=== PATIENT | male | born 1995 | race Caucasian/White ===

== ENCOUNTER 2020-12-04 14:10 | Inpatient (IN) | payer OTHER ==
[2020-12-04 17:22] VITALS: BMI 24.3
[2020-12-04] MEDS ORDERED: ACETAMINOPHEN 325 MG TABLET (FP) PO PRN ×2 (22:11)
[2020-12-04] MEDS ORDERED: hydrOXYzine PAMOATE 25 MG CAPSULE (FP) PO PRN (22:11)
[2020-12-04] MEDS ORDERED: cloNIDine HCL 0.1 MG TABLET PO PRN (22:11)
[2020-12-04] MEDS ORDERED: ONDANSETRON *ODT* 4 MG TABLET SL PRN (22:11)
[2020-12-04] MEDS ORDERED: MAGNESIUM HYDROX 2400MG/30ML ORAL SUSPENSION 30 ML CUP PO PRN (22:11)
[2020-12-04] MEDS ORDERED: BISMUTH SUBSALICYLATE 524 MG/30 ML UD PO PRN (22:11)
[2020-12-04] MEDS ORDERED: MAGNESIUM CITRATE 300 ML BOTTLE PO PRN (22:11)
[2020-12-04] MEDS ORDERED: METHADONE HCL 10 MG TABLET (FOR DETOX USE ONLY) PO ONE (23:00)
[2020-12-05] MEDS ORDERED: METHADONE HCL 10 MG TABLET (FOR DETOX USE ONLY) ONE (09:38)
[2020-12-05] MEDS ORDERED: METHADONE HCL 5 MG TABLET (FOR DETOX USE ONLY) ONE (09:38)
[2020-12-05] MEDS ORDERED: METHADONE (DETOX) 20 MG, METHADONE (DETOX) 5 MG PO ONE (10:00)
[2020-12-05] MEDS: PRENATAL VITAMINS W/ FOLIC ACID TABLET (FP) PO SCH (10:34)
[2020-12-05] MEDS: NICOTINE 21 MG/24 HOURS TOPICAL PATCH TD SCH (10:34)
[2020-12-05 12:08] LABS: ALBUMIN 3.7 g/dl (3.4-5.0); CALCIUM 9.2 mg/dL (8.5-10.1)
[2020-12-05 12:09] LABS: BLOOD UREA NITROGEN 15.4 mg/dL (7-18); CREATININE 1.1 mg/dL (0.55-1.3)
[2020-12-05 12:12] LABS: TOT PROT 6.6 g/dl (6.4-8.2)
[2020-12-05 12:24] LABS: HEMATOCRIT 41.7 % (35.4-49); HEMOGLOBIN 14.1 GM/dL (11.7-16.9); MCH 28.4 pg (25.7-33.7); MCHC 33.7 g/dl (32.0-35.9); MEAN CELL VOLUME 84.4 fl (80-96); MEAN PLT VOLUME 7.2 fl (7.5-11.1); PLATELET COUNT 267 K/MM3 (134-434); RBC 4.94 M/mm3 (4.00-5.60); RDW 13.1 % (11.9-15.9); WHITE BLOOD COUNT 6.4 K/mm3 (4.0-10.0)
[2020-12-05] MEDS: IBUPROFEN 400 MG TABLET (FP) PO PRN ×2 (12:33→22:38)
[2020-12-05] MEDS: MAG HYDROX/AL HYDROX/SIMETH 30 ML UNIT-DOSE CUP PO PRN (12:33)
[2020-12-05 13:04] LABS: HIV INTERPRETATION NEGATIVE (NEGATIVE)
[2020-12-05] MEDS: METHOCARBAMOL 500 MG TABLET PO PRN (13:40)
[2020-12-05] MEDS: NICOTINE POLACRILEX 2 MG GUM BUC PRN (17:58)
[2020-12-05] MEDS ORDERED: MELATONIN 5 MG TABLETS PO SCH (22:00)
[2020-12-05] MEDS: THIAMINE HCL 100 MG TABLET (FP) PO SCH (22:35)
[2020-12-05] MEDS: SUVOREXANT 15 MG TABLET PO PRN (22:36)
[2020-12-05] MEDS: GABAPENTIN 400 MG CAPSULE PO SCH (22:36)
[2020-12-05] MEDS: hydrOXYzine PAMOATE 50 MG CAPSULE (FP) PO PRN (22:37)
[2020-12-06] MEDS: GABAPENTIN 400 MG CAPSULE PO SCH ×3 (06:40→22:21)
[2020-12-06] MEDS ORDERED: METHADONE HCL 10 MG TABLET (FOR DETOX USE ONLY) PO ONE (10:00)
[2020-12-06] MEDS: PRENATAL VITAMINS W/ FOLIC ACID TABLET (FP) PO SCH (11:07)
[2020-12-06] MEDS: METHOCARBAMOL 500 MG TABLET PO PRN (11:07)
[2020-12-06] MEDS: NICOTINE 21 MG/24 HOURS TOPICAL PATCH TD SCH (11:07)
[2020-12-06] MEDS: MAG HYDROX/AL HYDROX/SIMETH 30 ML UNIT-DOSE CUP PO PRN (12:57)
[2020-12-06 16:39] LABS: BILIRUBIN,DIRECT 0.2 mg/dL (0.0-0.2)
[2020-12-06 16:41] LABS: BILIRUBIN,TOTAL 1.5 mg/dL (0.2-1)
[2020-12-06] MEDS: NICOTINE POLACRILEX 2 MG GUM BUC PRN (20:45)
[2020-12-06] MEDS: THIAMINE HCL 100 MG TABLET (FP) PO SCH (22:21)
[2020-12-06] MEDS: SUVOREXANT 15 MG TABLET PO PRN (22:21)
[2020-12-06] MEDS: hydrOXYzine PAMOATE 50 MG CAPSULE (FP) PO PRN (22:23)
[2020-12-07] MEDS: GABAPENTIN 400 MG CAPSULE PO SCH ×3 (07:42→22:41)
[2020-12-07] MEDS ORDERED: METHADONE HCL 5 MG TABLET (FOR DETOX USE ONLY) ONE (09:37)
[2020-12-07] MEDS ORDERED: METHADONE HCL 10 MG TABLET (FOR DETOX USE ONLY) ONE (09:37)
[2020-12-07] MEDS ORDERED: METHADONE (DETOX) 10 MG, METHADONE (DETOX) 5 MG PO ONE (10:00)
[2020-12-07] MEDS: PRENATAL VITAMINS W/ FOLIC ACID TABLET (FP) PO SCH (10:14)
[2020-12-07] MEDS: NICOTINE 21 MG/24 HOURS TOPICAL PATCH TD SCH (10:14)
[2020-12-07] MEDS: MAG HYDROX/AL HYDROX/SIMETH 30 ML UNIT-DOSE CUP PO PRN (10:16)
[2020-12-07] MEDS: hydrOXYzine PAMOATE 50 MG CAPSULE (FP) PO PRN ×2 (10:17→22:43)
[2020-12-07] MEDS: MENTHOL/PHENOL 1 EACH UD MM PRN (20:23)
[2020-12-07] MEDS: THIAMINE HCL 100 MG TABLET (FP) PO SCH (22:41)
[2020-12-07] MEDS: SUVOREXANT 15 MG TABLET PO PRN (22:42)
[2020-12-07] MEDS: METHOCARBAMOL 500 MG TABLET PO PRN (22:45)
[2020-12-08] MEDS: GABAPENTIN 400 MG CAPSULE PO SCH ×3 (06:21→22:28)
[2020-12-08] MEDS ORDERED: METHADONE HCL 10 MG TABLET (FOR DETOX USE ONLY) PO ONE (10:00)
[2020-12-08] MEDS: MENTHOL/PHENOL 1 EACH UD MM PRN ×2 (10:39→19:27)
[2020-12-08] MEDS: PRENATAL VITAMINS W/ FOLIC ACID TABLET (FP) PO SCH (10:39)
[2020-12-08] MEDS: NICOTINE 21 MG/24 HOURS TOPICAL PATCH TD SCH (10:39)
[2020-12-08] MEDS: METHOCARBAMOL 500 MG TABLET PO PRN (11:41)
[2020-12-08] MEDS: LIDOCAINE 5% TOPICAL PATCH TP SCH (12:39)
[2020-12-08] MEDS ORDERED: LIDOCAINE PATCH REMOVAL MC SCH ×2 (22:00)
[2020-12-08] MEDS ORDERED: MIRTAZAPINE 15 MG TABLET (FP) PO SCH (22:00)
[2020-12-08] MEDS ORDERED: SUVOREXANT 20 MG TABLET PO PRN (22:00)
[2020-12-08] MEDS: THIAMINE HCL 100 MG TABLET (FP) PO SCH (22:28)
[2020-12-09] MEDS ORDERED: METHADONE HCL 5 MG TABLET (FOR DETOX USE ONLY) PO ONE (06:00)
[2020-12-09 06:42] VITALS: PULSE 57
[2020-12-09] MEDS: GABAPENTIN 400 MG CAPSULE PO SCH (07:37)
[2020-12-09 09:05] VITALS: BP 121/81; TEMP 98.2
[2020-12-09] MEDS: NICOTINE 21 MG/24 HOURS TOPICAL PATCH TD SCH (10:59)
[2020-12-09] MEDS: LIDOCAINE 5% TOPICAL PATCH TP SCH (10:59)
[2020-12-09] MEDS: PRENATAL VITAMINS W/ FOLIC ACID TABLET (FP) PO SCH (11:00)
[2020-12-09] MEDS: MENTHOL/PHENOL 1 EACH UD MM PRN (11:36)
== END 2020-12-09 12:27 | disposition other institution (70) | DRG 773 ==
LOC: YASAS 14:10 → Y6N 21:54
PROVIDERS: ADMIT Allergy & Immunology; ATTEND Allergy & Immunology
PROC: HZ2ZZZZ Detoxification Services for Substance Abuse Treatment (ICD-10-PCS; principal; 2020-12-04)
DX: F11.23 Opioid dependence with withdrawal (principal); F19.280 Other psychoactive substance dependence with psychoactive substance-induced anxiety disorder; F19.282 Other psychoactive substance dependence with psychoactive substance-induced sleep disorder; F17.210 Nicotine dependence, cigarettes, uncomplicated; F41.9 Anxiety disorder, unspecified; E80.6 Other disorders of bilirubin metabolism; G47.00 Insomnia, unspecified; M54.89 Other dorsalgia; Z86.69 Personal history of other diseases of the nervous system and sense organs; Z87.81 Personal history of (healed) traumatic fracture
CPT/HCPCS: 36415; 80053; 82247; 82248; 85027; 86780; 87389; 93005; 93010; C9803; U0003

== ENCOUNTER 2020-12-09 12:34 | Inpatient (IN) | payer OTHER ==
[2020-12-09] MEDS ORDERED: guaiFENesin 200 MG/10 ML 10 ML UNIT-DOSE CUPS PO PRN (14:04)
[2020-12-09] MEDS ORDERED: LOPERAMIDE HCL 2 MG CAPSULE PO PRN (14:04)
[2020-12-09] MEDS ORDERED: MAGNESIUM HYDROX 2400MG/30ML ORAL SUSPENSION 30 ML CUP PO PRN (14:04)
[2020-12-09] MEDS ORDERED: MAGNESIUM CITRATE 300 ML BOTTLE PO PRN (14:04)
[2020-12-09] MEDS ORDERED: NICOTINE POLACRILEX 4 MG GUM BUC PRN (14:04)
[2020-12-09] MEDS ORDERED: IBUPROFEN 400 MG TABLET (FP) PO PRN (14:04)
[2020-12-09] MEDS ORDERED: ACETAMINOPHEN 325 MG TABLET (FP) PO PRN (14:04)
[2020-12-09] MEDS ORDERED: MAG HYDROX/AL HYDROX/SIMETH 30 ML UNIT-DOSE CUP PO PRN (14:04)
[2020-12-09] MEDS ORDERED: P-EPHED 60MG/TRIPROLIDI 2.5MG TABLET PO PRN (14:04)
[2020-12-09] MEDS: MELATONIN 5 MG TABLETS PO SCH (21:28)
[2020-12-09] MEDS: LIDOCAINE PATCH REMOVAL MC SCH (21:28)
[2020-12-09] MEDS: THIAMINE HCL 100 MG TABLET (FP) PO SCH (21:28)
[2020-12-09] MEDS: GABAPENTIN 400 MG CAPSULE PO SCH (21:29)
[2020-12-09] MEDS: hydrOXYzine PAMOATE 25 MG CAPSULE (FP) PO PRN (21:30)
[2020-12-10] MEDS: GABAPENTIN 400 MG CAPSULE PO SCH ×3 (06:48→21:27)
[2020-12-10] MEDS: hydrOXYzine PAMOATE 25 MG CAPSULE (FP) PO PRN ×2 (10:07→21:29)
[2020-12-10] MEDS: PRENATAL VITAMINS W/ FOLIC ACID TABLET (FP) PO SCH (10:07)
[2020-12-10] MEDS: NICOTINE 21 MG/24 HOURS TOPICAL PATCH TD SCH (10:07)
[2020-12-10] MEDS: LIDOCAINE 5% TOPICAL PATCH TP SCH (10:07)
[2020-12-10] MEDS ORDERED: MASKS NR ONE (16:00)
[2020-12-10] MEDS: MELATONIN 5 MG TABLETS PO SCH (21:26)
[2020-12-10] MEDS: MIRTAZAPINE 15 MG TABLET (FP) PO PRN (21:27)
[2020-12-10] MEDS: THIAMINE HCL 100 MG TABLET (FP) PO SCH (21:27)
[2020-12-10] MEDS: LIDOCAINE PATCH REMOVAL MC SCH (21:27)
[2020-12-10] MEDS: SUVOREXANT 10 MG TABLET PO PRN (21:29)
[2020-12-10] MEDS: MENTHOL/PHENOL 1 EACH UD MM PRN (21:37)
[2020-12-11] MEDS: GABAPENTIN 400 MG CAPSULE PO SCH ×3 (06:56→21:22)
[2020-12-11] MEDS: PRENATAL VITAMINS W/ FOLIC ACID TABLET (FP) PO SCH (10:10)
[2020-12-11] MEDS: LIDOCAINE 5% TOPICAL PATCH TP SCH (10:10)
[2020-12-11] MEDS: NICOTINE 21 MG/24 HOURS TOPICAL PATCH TD SCH (10:10)
[2020-12-11] MEDS ORDERED: MASKS NR ONE (13:43)
[2020-12-11] MEDS: LIDOCAINE PATCH REMOVAL MC SCH (21:22)
[2020-12-11] MEDS: THIAMINE HCL 100 MG TABLET (FP) PO SCH (21:22)
[2020-12-11] MEDS: hydrOXYzine PAMOATE 25 MG CAPSULE (FP) PO PRN (21:22)
[2020-12-11] MEDS: MELATONIN 5 MG TABLETS PO SCH (21:23)
[2020-12-11] MEDS: QUEtiapine FUMARATE 100 MG TABLET (FP) PO SCH (21:23)
[2020-12-11] MEDS: MENTHOL/PHENOL 1 EACH UD MM PRN (21:24)
[2020-12-11] MEDS: MIRTAZAPINE 15 MG TABLET (FP) PO PRN (21:24)
[2020-12-11] MEDS: SUVOREXANT 10 MG TABLET PO PRN (21:24)
[2020-12-12] MEDS: GABAPENTIN 400 MG CAPSULE PO SCH ×3 (06:43→21:31)
[2020-12-12] MEDS: LIDOCAINE 5% TOPICAL PATCH TP SCH ×2 (10:19→10:21)
[2020-12-12] MEDS: NICOTINE 21 MG/24 HOURS TOPICAL PATCH TD SCH (10:19)
[2020-12-12] MEDS: PRENATAL VITAMINS W/ FOLIC ACID TABLET (FP) PO SCH (10:20)
[2020-12-12] MEDS: MENTHOL/PHENOL 1 EACH UD MM PRN (19:11)
[2020-12-12] MEDS: MELATONIN 5 MG TABLETS PO SCH (21:31)
[2020-12-12] MEDS: MIRTAZAPINE 15 MG TABLET (FP) PO PRN (21:31)
[2020-12-12] MEDS: SUVOREXANT 10 MG TABLET PO PRN (21:31)
[2020-12-12] MEDS: THIAMINE HCL 100 MG TABLET (FP) PO SCH (21:31)
[2020-12-12] MEDS: QUEtiapine FUMARATE 100 MG TABLET (FP) PO SCH (21:31)
[2020-12-12] MEDS: hydrOXYzine PAMOATE 50 MG CAPSULE (FP) PO PRN (21:31)
[2020-12-12] MEDS: LIDOCAINE PATCH REMOVAL MC SCH (21:32)
[2020-12-13] MEDS: GABAPENTIN 400 MG CAPSULE PO SCH ×3 (06:50→21:31)
[2020-12-13] MEDS: LIDOCAINE 5% TOPICAL PATCH TP SCH (09:30)
[2020-12-13] MEDS: NICOTINE 21 MG/24 HOURS TOPICAL PATCH TD SCH (09:31)
[2020-12-13] MEDS: PRENATAL VITAMINS W/ FOLIC ACID TABLET (FP) PO SCH (09:31)
[2020-12-13] MEDS: MENTHOL/PHENOL 1 EACH UD MM PRN (11:05)
[2020-12-13] MEDS: MELATONIN 5 MG TABLETS PO SCH (21:31)
[2020-12-13] MEDS: THIAMINE HCL 100 MG TABLET (FP) PO SCH (21:31)
[2020-12-13] MEDS: QUEtiapine FUMARATE 100 MG TABLET (FP) PO SCH (21:31)
[2020-12-13] MEDS: LIDOCAINE PATCH REMOVAL MC SCH (21:32)
[2020-12-13] MEDS: SUVOREXANT 10 MG TABLET PO PRN (21:33)
[2020-12-13] MEDS: hydrOXYzine PAMOATE 50 MG CAPSULE (FP) PO PRN (21:34)
[2020-12-14] MEDS: GABAPENTIN 400 MG CAPSULE PO SCH ×3 (07:25→21:35)
[2020-12-14] MEDS: LIDOCAINE 5% TOPICAL PATCH TP SCH (09:52)
[2020-12-14] MEDS: NICOTINE 21 MG/24 HOURS TOPICAL PATCH TD SCH (09:52)
[2020-12-14] MEDS: PRENATAL VITAMINS W/ FOLIC ACID TABLET (FP) PO SCH (09:52)
[2020-12-14] MEDS: MENTHOL/PHENOL 1 EACH UD MM PRN (09:55)
[2020-12-14] MEDS: MELATONIN 5 MG TABLETS PO SCH (21:35)
[2020-12-14] MEDS: MIRTAZAPINE 15 MG TABLET (FP) PO PRN (21:35)
[2020-12-14] MEDS: LIDOCAINE PATCH REMOVAL MC SCH (21:35)
[2020-12-14] MEDS: QUEtiapine FUMARATE 100 MG TABLET (FP) PO SCH (21:35)
[2020-12-14] MEDS: hydrOXYzine PAMOATE 50 MG CAPSULE (FP) PO PRN (21:35)
[2020-12-14] MEDS: THIAMINE HCL 100 MG TABLET (FP) PO SCH (21:35)
[2020-12-14] MEDS: SUVOREXANT 10 MG TABLET PO PRN (21:35)
[2020-12-15] MEDS: GABAPENTIN 400 MG CAPSULE PO SCH ×3 (06:57→21:28)
[2020-12-15] MEDS: NICOTINE 21 MG/24 HOURS TOPICAL PATCH TD SCH (10:33)
[2020-12-15] MEDS: LIDOCAINE 5% TOPICAL PATCH TP SCH (10:33)
[2020-12-15] MEDS: PRENATAL VITAMINS W/ FOLIC ACID TABLET (FP) PO SCH (10:33)
[2020-12-15] MEDS: SUVOREXANT 10 MG TABLET PO PRN (21:28)
[2020-12-15] MEDS: MELATONIN 5 MG TABLETS PO SCH (21:28)
[2020-12-15] MEDS: THIAMINE HCL 100 MG TABLET (FP) PO SCH (21:29)
[2020-12-15] MEDS: LIDOCAINE PATCH REMOVAL MC SCH (21:29)
[2020-12-15] MEDS: hydrOXYzine PAMOATE 50 MG CAPSULE (FP) PO PRN (21:29)
[2020-12-15] MEDS: QUEtiapine FUMARATE 100 MG TABLET (FP) PO SCH (21:29)
[2020-12-16] MEDS: GABAPENTIN 400 MG CAPSULE PO SCH ×3 (06:59→21:29)
[2020-12-16] MEDS: NICOTINE 21 MG/24 HOURS TOPICAL PATCH TD SCH (10:00)
[2020-12-16] MEDS: PRENATAL VITAMINS W/ FOLIC ACID TABLET (FP) PO SCH (10:00)
[2020-12-16] MEDS: LIDOCAINE 5% TOPICAL PATCH TP SCH (10:01)
[2020-12-16] MEDS: QUEtiapine FUMARATE 100 MG TABLET (FP) PO SCH (21:28)
[2020-12-16] MEDS: MIRTAZAPINE 15 MG TABLET (FP) PO PRN (21:28)
[2020-12-16] MEDS: THIAMINE HCL 100 MG TABLET (FP) PO SCH (21:28)
[2020-12-16] MEDS: MELATONIN 5 MG TABLETS PO SCH (21:28)
[2020-12-16] MEDS: hydrOXYzine PAMOATE 50 MG CAPSULE (FP) PO PRN (21:29)
[2020-12-16] MEDS: SUVOREXANT 10 MG TABLET PO PRN (21:29)
[2020-12-16] MEDS: LIDOCAINE PATCH REMOVAL MC SCH (22:09)
[2020-12-17] MEDS: GABAPENTIN 400 MG CAPSULE PO SCH ×3 (07:01→21:34)
[2020-12-17] MEDS: LIDOCAINE 5% TOPICAL PATCH TP SCH (09:57)
[2020-12-17] MEDS: PRENATAL VITAMINS W/ FOLIC ACID TABLET (FP) PO SCH (09:58)
[2020-12-17] MEDS: NICOTINE 21 MG/24 HOURS TOPICAL PATCH TD SCH (09:58)
[2020-12-17] MEDS: THIAMINE HCL 100 MG TABLET (FP) PO SCH (21:34)
[2020-12-17] MEDS: MELATONIN 5 MG TABLETS PO SCH (21:34)
[2020-12-17] MEDS: QUEtiapine FUMARATE 100 MG TABLET (FP) PO SCH (21:34)
[2020-12-17] MEDS: LIDOCAINE PATCH REMOVAL MC SCH (21:35)
[2020-12-17] MEDS: SUVOREXANT 10 MG TABLET PO PRN (21:36)
[2020-12-18] MEDS: GABAPENTIN 400 MG CAPSULE PO SCH ×3 (07:06→21:53)
[2020-12-18] MEDS: NICOTINE 21 MG/24 HOURS TOPICAL PATCH TD SCH (10:06)
[2020-12-18] MEDS: LIDOCAINE 5% TOPICAL PATCH TP SCH (10:06)
[2020-12-18] MEDS: PRENATAL VITAMINS W/ FOLIC ACID TABLET (FP) PO SCH (10:06)
[2020-12-18] MEDS: QUEtiapine FUMARATE 100 MG TABLET (FP) PO SCH (21:53)
[2020-12-18] MEDS: hydrOXYzine PAMOATE 50 MG CAPSULE (FP) PO PRN (21:53)
[2020-12-18] MEDS: THIAMINE HCL 100 MG TABLET (FP) PO SCH (21:53)
[2020-12-18] MEDS: MELATONIN 5 MG TABLETS PO SCH (21:53)
[2020-12-18] MEDS: LIDOCAINE PATCH REMOVAL MC SCH (21:54)
[2020-12-18] MEDS: SUVOREXANT 10 MG TABLET PO PRN (21:54)
[2020-12-18] MEDS: MIRTAZAPINE 15 MG TABLET (FP) PO PRN (21:55)
[2020-12-19] MEDS: GABAPENTIN 400 MG CAPSULE PO SCH ×3 (06:49→21:33)
[2020-12-19] MEDS: NICOTINE 21 MG/24 HOURS TOPICAL PATCH TD SCH (10:07)
[2020-12-19] MEDS: LIDOCAINE 5% TOPICAL PATCH TP SCH (10:07)
[2020-12-19] MEDS: PRENATAL VITAMINS W/ FOLIC ACID TABLET (FP) PO SCH (10:07)
[2020-12-19] MEDS: LIDOCAINE PATCH REMOVAL MC SCH (21:32)
[2020-12-19] MEDS: THIAMINE HCL 100 MG TABLET (FP) PO SCH (21:33)
[2020-12-19] MEDS: SUVOREXANT 10 MG TABLET PO PRN (21:33)
[2020-12-19] MEDS: QUEtiapine FUMARATE 100 MG TABLET (FP) PO SCH (21:33)
[2020-12-19] MEDS: MELATONIN 5 MG TABLETS PO SCH (21:33)
[2020-12-19] MEDS: hydrOXYzine PAMOATE 50 MG CAPSULE (FP) PO PRN (21:36)
[2020-12-19] MEDS: MIRTAZAPINE 15 MG TABLET (FP) PO PRN (21:36)
[2020-12-20 07:20] VITALS: BP 133/76; PULSE 71; TEMP 97.8
[2020-12-20] MEDS: GABAPENTIN 400 MG CAPSULE PO SCH (07:23)
== END 2020-12-20 09:50 | disposition home or self-care (01) | DRG 772 ==
LOC: YASAS 12:34 → Y5N 12:35
PROVIDERS: ADMIT Allergy & Immunology; ATTEND Allergy & Immunology
PROC: HZ42ZZZ Group Counseling for Substance Abuse Treatment, Cognitive-Behavioral (ICD-10-PCS; principal; 2020-12-09)
DX: F11.20 Opioid dependence, uncomplicated (principal); F17.210 Nicotine dependence, cigarettes, uncomplicated; F19.282 Other psychoactive substance dependence with psychoactive substance-induced sleep disorder; F19.280 Other psychoactive substance dependence with psychoactive substance-induced anxiety disorder; F41.9 Anxiety disorder, unspecified; J02.9 Acute pharyngitis, unspecified; Z86.69 Personal history of other diseases of the nervous system and sense organs; Z87.81 Personal history of (healed) traumatic fracture
CPT/HCPCS: 87070; C9803; U0003